=== PATIENT | male | born 1955 | race Caucasian/White ===

== ENCOUNTER 2019-12-06 06:25 | Day surgery (SDC) | payer BC ==
[2019-12-06] MEDS ORDERED: Lactated Ringers 1,000 ML IV SCH (07:00)
[2019-12-06] MEDS ORDERED: Propofol 200 MG/20 ML SDV ONE ×2 (07:53→08:00)
[2019-12-06] MEDS ORDERED: fentaNYL 100 MCG/2 ML SDV ONE (07:53)
--- NOTE | 2019-12-06 11:03 | OR ---
BRIEF HISTORY OF PRESENT ILLNESS: Mr. Cutler is a 64-year-old male here for routine screening colonoscopy. He denies any bloody or dark black stools. No family history of colorectal cancer. He did say his dad had about 25 polyps every 6 months the last several years of his life, but I have no other details. This patient's last colonoscopy was 13 years ago and he tells me he thinks he had 1 polyp. PROCEDURE PERFORMED: Total flexible colonoscopy. ANESTHESIA: MAC anesthesia. COMPLICATIONS: None. BLOOD LOSS: Minimal. FINDINGS: 1. Ascending colon polyp, 2 mm, cold forceps. 2. Mild right-sided diverticulosis. 3. Significant left sigmoid diverticulosis. START TIME: 08:00. CECUM TIME: 08:07. END TIME: 08:21. DETAILS OF PROCEDURE: After informed consent was obtained, the patient was brought to the procedure room, placed in left lateral decubitus position. MAC anesthesia was induced by Anesthesia colleagues. After digital rectal exam, the colonoscope was introduced through the anal canal and advanced to the cecum. The appendiceal orifice and IC valve were photographed. It was then slowly withdrawn. There were no pathologic findings other than what is mentioned above in the finding section. A retroflexed view was obtained which was unremarkable. The rectum was desufflated and the colonoscope was removed. Bowel prep was Thaxton class II. PATHOLOGY: Recommended colonoscopy in years. RKM: 12/06/2019 08:28:59 MODL: 12/06/2019 10:54:34 /[id number]
== END 2019-12-06 12:30 | disposition home or self-care (01) ==
LOC: VM.SDS 06:25
PROVIDERS: ATTEND Student in an Organized Health Care Education/Training Program
DX: Z12.11 Encounter for screening for malignant neoplasm of colon (principal); D12.2 Benign neoplasm of ascending colon; K57.30 Diverticulosis of large intestine without perforation or abscess without bleeding; E11.9 Type 2 diabetes mellitus without complications; I10 Essential (primary) hypertension; G47.33 Obstructive sleep apnea (adult) (pediatric); E03.9 Hypothyroidism, unspecified; E78.5 Hyperlipidemia, unspecified; E66.01 Morbid (severe) obesity due to excess calories; Z68.42 Body mass index [BMI] 45.0-49.9, adult; Z86.010 Personal history of colon polyps; Z83.71 Family history of colonic polyps; Z87.891 Personal history of nicotine dependence; Z99.89 Dependence on other enabling machines and devices; Z79.82 Long term (current) use of aspirin; Z79.84 Long term (current) use of oral hypoglycemic drugs; Z79.899 Other long term (current) drug therapy
CPT/HCPCS: 45380; 82962; J2704; J3010; J7120

== ENCOUNTER 2025-01-25 07:28 | Day surgery (SDC) | payer MEDICARE, BC ==
[2025-01-25] MEDS: Lactated Ringers 1,000 ML IV SCH (08:00)
[2025-01-25] MEDS ORDERED: fentaNYL 100 MCG/2 ML SDV ONE (08:36)
[2025-01-25] MEDS ORDERED: Midazolam 1 MG/ML 2 ML SDV ONE (08:36)
[2025-01-25] MEDS ORDERED: Propofol 200 MG/20 ML SDV ONE (08:36)
== END 2025-01-25 10:57 | disposition home or self-care (01) ==
LOC: VM.SDS 07:28
PROVIDERS: ATTEND Family Medicine
DX: Z12.11 Encounter for screening for malignant neoplasm of colon (principal); D12.0 Benign neoplasm of cecum; K57.30 Diverticulosis of large intestine without perforation or abscess without bleeding; Z86.0100 Personal history of colon polyps, unspecified; Z83.719 Family history of colon polyps, unspecified; I10 Essential (primary) hypertension; E11.9 Type 2 diabetes mellitus without complications; E78.2 Mixed hyperlipidemia; E66.01 Morbid (severe) obesity due to excess calories; Z68.42 Body mass index [BMI] 45.0-49.9, adult; G47.33 Obstructive sleep apnea (adult) (pediatric); E03.9 Hypothyroidism, unspecified; Z79.84 Long term (current) use of oral hypoglycemic drugs; Z79.890 Hormone replacement therapy; Z79.899 Other long term (current) drug therapy
CPT/HCPCS: 00811; 45380; 82947; J2250; J2704; J3010; J7120; 88305